=== PATIENT | male | born 1990 | race Caucasian/White ===

== ENCOUNTER 2019-04-15 08:54 | Outpatient (CLI) | payer BC ==
--- NOTE | 2019-04-15 09:20 | ULT ---
Gallbladder ultrasound: Multiple grayscale images of right upper quadrant obtained according to protocol. INDICATION: Elevated bilirubin levels FINDINGS: Liver: There is mild increased echogenicity of the liver. Gallbladder: Normal Gallbladder wall: Normal. De La Vega's Sign: Negative Common bile duct is normal. Ascites: None IMPRESSION: Normal gallbladder. Mild increased echogenicity of the liver. This can be seen in the setting of hepatic steatosis. Corre late with liver function enzymes.
== END 2019-04-15 08:55 | disposition home or self-care (01) ==
LOC: SCSULT 08:54
PROVIDERS: ATTEND Family Medicine
DX: R17 Unspecified jaundice (principal); K76.89 Other specified diseases of liver
CPT/HCPCS: 76705